=== PATIENT | female | born 1980 | race African-American/Black ===

== ENCOUNTER → 2023-10-16 12:07 | Outpatient (REF) | payer OTHER, SELFPAY | LOC: WDC 12:07 | PROVIDERS: ATTENDING PHYSICIAN Family Medicine | DX: Z12.31 Encounter for screening mammogram for malignant neoplasm of breast (principal) | CPT/HCPCS: 77063; 77067 ==

== ENCOUNTER 2024-01-02 06:13 | Day surgery (SDC) | payer OTHER, SELFPAY ==
[2023-12-08 06:56] VITALS: BMI 21.3
[2023-12-08 08:53] LABS: Hematocrit 38.5 % (37.0-47.0); Hemoglobin 12.4 g/dL (12.0-16.0); Mean Corp Hgb Conc. 32.2 g/dL (33.0-37.0); Mean Corpuscular Hgb 25.4 pg (27.0-31.0); Mean Corpuscular Volume 78.7 fL (81.0-99.0); Mean Platelet Volume 10.5 fL (7.4-10.4); Platelet Count 250 10^3/uL (130-400); Red Blood Cell Count 4.89 10^6/uL (4.20-5.40)
[2023-12-08 09:06] LABS: INR 1.03; PT 13.3 Sec (11.4-14.6)
[2023-12-08 09:17] LABS: Blood Urea Nitrogen 20 mg/dl (7-17); Calcium 10.1 mg/dl (8.4-10.2); Carbon Dioxide 26 mmol/L (22-30); Chloride 103 mmol/L (98-107); Estimated Creatinine Clearance 84 ml/min; Glucose 74 mg/dl (70-99); Potassium 4.4 mmol/L (3.5-5.1); Sodium 137 mmol/L (135-145); eGFR > 60.00
[2023-12-08 09:30] LABS: Beta HCG Quantitative < 2.39 mIU/ml
[2023-12-08 09:50] LABS: Absolute Neutrophils -Man Diff 1.1 10^3/uL (1.4-6.5); Band Neutrophils 0 % (0-3); Eosinophils 2 % (0-6); Lymphocytes 51 % (20-51); Monocytes 10 % (2-9); Segmented Neutrophils 37 % (42-75)
[2023-12-08 09:51] LABS: Normal RBC Morphology Yes; Platelets Checked Yes; Total Cells Counted 100
[2024-01-02] VITALS (17 sets, daily range): BP systolic 108–145; BP diastolic 63–86; BMI 21.3
--- NOTE | 2024-01-02 07:15 | W.SUR.PREOP ---
Pre-Operative Surgical Note
-
I have examined this patient prior to the performance of the scheduled procedure.
The patient's condition is unchanged from the time of the current History and
Physical and the patient is able to undergo the scheduled procedure.
No changes in exam or hx/plan.
[2024-01-02] MEDS: NORMOSOL-R 1000 IV ×2 (07:29→17:02)
[2024-01-02] MEDS: HEPARIN 5000 UNITS SC (07:29)
--- NOTE | 2024-01-02 10:06 | W.IMMPOSTOP ---
Surgical Immed Post Op Note
-
Primary Surgeon: Yael Gramajo DO
Replanting Machine Operator: JASE Llamas
Pre-op Diagnosis: Menorrhagia, fibroid uterus, anemia
Post-op Diagnosis: same
Procedure Performed: Robotic assisted total vaginal hysterectomy bilateral salpingectomy
Anesthesia Type: general ET Dr. Rdz
Specimen / Cultures: uterus, cervix, bilateral tubes
Estimated Blood Loss: 15ml
IVF: 1500ml
Urine output: 800ml clear yellow
Complications: none
Operative Findings: Uterus with globular shape containing fibroid. normal appearing cervix, tubes and ovaries. Benign cyst left ovary approx 1.5cm.
Counts correct times 2.
Stable to recovery.
[2024-01-02] MEDS: ZOFRAN 4 MG IV (11:02)
--- NOTE | 2024-01-02 12:06 | PTCARENOTE ---
Addendum..Patient had intermittent nausea medicated with zofran and additional IVF. Nausea continues to be intermittent, spoke with Dr Kendell lopez to move to [facility].
--- NOTE | 2024-01-02 14:39 | W.PN.UPDATE ---
Update Note
Progress Note Update
Seen in recovery and SDS after surgery. She had been hoping to go home but after surgery has been having somnolence and also Nausea that is not resolved with meds yet. She has been in recovery/SDS over 2.5 hrs and not ready to go home yet. Suggested
staying for now and I can see her later this afternoon/evening to reassess. May stay and be discharged tomorrow also. She agrees. Orders written.
[2024-01-02] MEDS: NON-FORMULARY ITEM 100 MG SC ×2 (16:58→21:25)
[2024-01-02] MEDS: NON-FORMULARY ITEM SC (16:58)
[2024-01-02] MEDS: TORADOL 15 MG IV ×2 (17:00→22:17)
--- NOTE | 2024-01-02 18:30 | W.PN.UPDATE ---
Update Note
Progress Note Update
Postop check.:
Cassia having some nausea still and unable to tolerated sips yet.
Has antiemetic ordered.
VSS afeb
abd: soft ND inc cdi
A/P:Postop check s/p RA TLH b/l salpingectomy
Nausea postop
Plan to keep overnight
Scopolamine patch ordered in addition to antiemetics
Cont postop care
anticipate dc tomorrow
labs in am
[2024-01-02] MEDS: TRANSDERM-SCOP 1 PATCH TRANSDERM (20:05)
[2024-01-02] MEDS: MYLICON 80 MG PO (21:24)
[2024-01-03] MEDS: NORMOSOL-R 1000 IV ×2 (00:29→07:53)
[2024-01-03 03:00] VITALS: BP 124/68
[2024-01-03] MEDS: TORADOL 15 MG IV ×2 (05:57→10:23)
[2024-01-03 06:35] LABS: % Basophils 0.8 % (0-2); % Eosinophils 0.2 % (0-6); % Immature Granulocytes 0.2 % (0-0.5); % Lymphocytes 29.6 % (20.5-51.1); % Monocytes 12.3 % (1.7-9.3); % Neutrophils 56.9 % (42.2-75.2); Absolute Lymphocytes 1.6 10^3/uL (1.2-3.4); Absolute Monocytes 0.7 10^3/uL (0.1-0.6); Hematocrit 33.9 % (37.0-47.0); Hemoglobin 11.4 g/dL (12.0-16.0); Mean Corp Hgb Conc. 33.6 g/dL (33.0-37.0); Mean Corpuscular Hgb 26.8 pg (27.0-31.0); Mean Corpuscular Volume 79.8 fL (81.0-99.0); Mean Platelet Volume 10.4 fL (7.4-10.4); Nucleated Red Blood Cells % 0 %; Platelet Count 208 10^3/uL (130-400); Red Blood Cell Count 4.25 10^6/uL (4.20-5.40); Red Cell Dist. Width 18.6 % (11.5-14.5); White Blood Cell Count 5.3 10^3/uL (4.8-10.8)
[2024-01-03 07:00] LABS: Blood Urea Nitrogen 10 mg/dl (7-17); Carbon Dioxide 21 mmol/L (22-30); Chloride 106 mmol/L (98-107); Estimated Creatinine Clearance 96 ml/min; Potassium 3.7 mmol/L (3.5-5.1); Sodium 135 mmol/L (135-145)
[2024-01-03] MEDS: NON-FORMULARY ITEM 100 MG SC (07:52)
[2024-01-03 07:57] VITALS: BP 129/82
--- NOTE | 2024-01-03 11:00 | CM ---
Initial assessment completed
Pharmacy verified: [facility], [address], [place]
Family Physician verified: Matthew Reyes DO, [address], [address], [place]
Patient lives with her and two children, ages 15 and 7 in a multilevel home; 3 steps to enter; 14 steps between floors; powder room on the main level; 2nd floor bathroom has stall shower
PLOF: independent with ambulation, stairs and ADLs; drives; stay at home mother of two
DME: none
SNF/Home Health utilization history: none
Transportation: will provide ride home
Plan: discharge to home today; no needs anticipated
[2024-01-03 11:28] VITALS: BP 137/84
--- NOTE | 2024-01-03 12:02 | W.DS.TRANS ---
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
-
Discharge Instructions:
Sleep Apnea Risk Low
Discharge Diagnosis/Procedures fibroids, menorrhagia, anemia, pelvic pain S/P
Robotic laparoscopic total hysterectomy and
bilateral salpingectomy
Diet Regular
Activity No strenuous activity
Bathing Restrictions OK to Shower
Instructions:
Stand-Alone Forms:
Changes to Home Medications: No
Discharge Medications:
DC Medications w/original date entered in [employer]
Lactobacillus 40-Bifidobact 3-S.thermophilus 100 billion cell capsule (Probiotic) 1 cap PO DAILY 12/31/23
Quercetin With Bromelain 1 dose PO DAILY 12/31/23
Zinc/Magnesium 1 dose PO DAILY 12/31/23
anakinra 100 mg/0.67 mL subcutaneous syringe (Kineret) 100 mg SC TID 12/31/23
omalizumab 150 mg/mL subcutaneous auto-injector (Xolair) 1 mg SC MONTHLY 12/31/23
acetaminophen 325 mg tablet (Tylenol) 650 mg (2 x 325 mg) PO Q6H PRN mild pain #1 tab 01/02/24
ibuprofen 600 mg tablet 600 mg PO Q6H PRN mild pain #1 tab 01/02/24
ibuprofen 600 mg tablet 600 mg PO Q6H PRN mild pain #30 tabs 01/02/24
oxycodone 5 mg tablet 5 mg PO Q6H PRN moderate pain #1 tab 01/02/24
oxycodone 5 mg tablet 5 mg PO Q6H PRN severe pain #14 tabs 01/02/24
Home Medication Changes
Pending Results: Yes
Additional Pending Results:
surgical pathology
Total time spent discharging patient (in min): 30
--- NOTE | 2024-01-03 12:03 | W.PN.OBG.DWH ---
Today's Communication / Plan
-
dc home
Assessment/Plan
-
POD#1 s/p RA LH b/l salpingectomy
Stable for dc home today
reviewed dc instructions.
Subjective Data
-
POD#1 Feeling much better. Alyson diet.
no bleeding
voiding without difficulty
Objective Data
-
Laboratory Results
01/03/24 06:04
01/03/24 06:04
Vital Signs
Temp Pulse Resp BP Pulse Ox
98.2 F 77 16 137/84 98
01/03/24 11:28 01/03/24 11:28 01/03/24 11:28 01/03/24 11:28 01/03/24 11:28
VSS afeb
heart: regular rate
Pulm: clear b/l
Abd: soft +bs nondistended inc cdi
ext: no calf pain
== END 2024-01-03 12:43 | disposition home or self-care (01) ==
LOC: SDS 06:13
PROVIDERS: ATTENDING PHYSICIAN Obstetrics & Gynecology; FAMILY PHYSICIAN Family Medicine; OTHER PHYSICIAN Internal Medicine Rheumatology
DX: D25.9 Leiomyoma of uterus, unspecified (principal); N72 Inflammatory disease of cervix uteri; N80.03 Adenomyosis of the uterus; N83.292 Other ovarian cyst, left side; N92.0 Excessive and frequent menstruation with regular cycle; D50.0 Iron deficiency anemia secondary to blood loss (chronic); R10.2 Pelvic and perineal pain
CPT/HCPCS: 58571; 88307; 36415; 80048; 80051; 82565; 84520; 84702; 85025; 85610; 86850; 86900; 86901

== ENCOUNTER 2024-05-16 18:34 | Emergency (ER) | payer OTHER, SELFPAY ==
[2024-05-16 18:36] VITALS: BP 152/95
--- NOTE | 2024-05-16 21:14 | ED.GENMED ---
History of Present Illness
General
Chief Complaint: Eye Problems
Source: patient
Exam Limitations: none
Time Seen by Provider: 05/16/24 21:02
Nursing documentation reviewed up to this point in time: agreed with
History of Present Illness
History of Present Illness:
Patient is a 43-year-old female with past medical history of autoimmune disease, CAPS ( Cryopyrin associated periodic syndrome) ho presents to the ER complaining of left eye pain. Patient reports previously she was seen by her spot checker
Osvaldo because of eye irritation and was initially diagnosed with angle-closure glaucoma however when she last saw Dr. Riley of ophthalmology this year things improved and he simply felt she had a meibomian gland dysfunction.
She has been fine for months however for the past 2 weeks she has had a gritty sensation in both of her eyes and then last night started with left eye pain. She reports the pain in her left eye feels like the eyeball itself. It is worse when she
bends over. She is light sensitive. Her pain was so intense she was nauseous. She now has very minimal blurriness out of her left eye. She complains of discomfort to the left side of her face into her left upper tooth .
She denies any rash fever chills. No recent nasal congestion cough URI symptoms. No neck pain
She normally does not wear contacts.
Past History
Past History
ED Past Medical History: Other (Hyperprolactinemia), Other (recurrent headaches, urticaria) and Other (infertility; successful preg and delivery)
ED Past Surgical History: Other (oral surgery)
Social History
Tobacco: Non-smoker
Alcohol: None
Drug: None
Personal:
Living: with family
Employment: Employed
Family History
Family History: Other (reviewed and non-contributory)
Review of Systems
Review of Systems
Allergies reviewed?: Yes
All Other Systems: ROS reviewed and negative except as documented in HPI and ROS
Constitutional: Reports no symptoms; Denies fever, fatigue or chills
EENT: Reports other (left eye pain )
Respiratory: Reports no symptoms
Cardiac: Reports no symptoms
ABD/GI: Reports no symptoms
: Reports no symptoms
Musculoskeletal: Reports no symptoms
Skin: Reports no symptoms
Neurological: Reports no symptoms
Psychiatric: Reports no symptoms
Phy Exam
General Physical Exam
General Presentation: no apparent distress
General age: appears stated age
General Skin: warm and dry
General Habitus: normal
General Mental: alert
General Hydration: appears well hydrated
ENT Exam
ENT Exam: other (posterior left upper molar tender to palpation and slight decay to this to )
Eye Exam
Eye Exam: PERRL, EOMI and other (Clear conjunctiva no corneal abrasion or dye uptake; eye pressure 15 in left eye and 15 in right eye )
Able to obtain acuity?: Yes
Eye Exam General: PERRL: bilateral and EOM intact: bilateral
Pupil Exam: Bilateral: round and reactive
Neurological Exam
Neurological Exam: alert and oriented x3
Musculoskeletal Exam
Musculoskeletal Exam: full ROM
Skin Exam
Skin Exam: normal color and warm/dry
Psychiatric Exam
Psychiatric Exam: normal mood/affect
Course
Orders/Labs/Results
Orders:
Orders
05/16/24 21:20
Acetaminophen [Tylenol] 650 mg PO NOW STA
05/16/24 22:00
CT Head W/o Iv Contrast Urgent
Comment:
Reason For Exam: pain in left eye and headache
Visual Acuity- Treatment ONCE
05/17/24 00:15
Ketorolac [Toradol] 30 mg IM NOW STA
Vital Signs
Initial and Last Documented VS:
Initial Vital Signs
Temp Pulse Resp BP Pulse Ox
98.1 F 82 18 152/95 99
05/16/24 18:36 05/16/24 18:36 05/16/24 18:36 05/16/24 18:36 05/16/24 18:36
Last Documented Vital Signs
Temp Pulse Resp BP Pulse Ox
98.1 F 64 20 141/84 99
05/16/24 18:36 05/17/24 00:45 05/17/24 00:45 05/16/24 22:38 05/17/24 00:45
Residential Team Leader consulted with Physician
Residential Team Leader consulted with physician?: Yes
Name of Physician Consulted: Lorena
MDM/Problems Addressed
MDM/Problems Addressed:
Patient is a 43-year-old female with autoimmune history(CAPS) presented for complaints of left eye pain/facial pain and tooth pain. Patient does have a history of irritated dry eyes and was initially diagnosed with glaucoma in the past however
found by ophthalmology Dr. Riley to have a Meibomian gland dysfunction and not glaucoma. She denies any double vision, denies any recent fever chills denies any rash neck sensitivity. Patient has normal pressures normal visual acuity no
corneal abrasion or dye uptake.
Patient nontoxic. She is tender to the posterior left upper molar there is very minimal decay of this tooth though no gum swelling or abscess. CAT scan negative. Case reviewed with , will d/c home with optho (Dr. Crooks follow up
and f/u w/ her spot checker and dentist.
Patient was offered Toradol but declines. It is possible this is related to her anti-inflammatory autoimmune problem however she is stable for discharge home. Will however send a prescription for antibiotics for her tooth to pharmacy.
*Critical Care Note
Total Time (30-74mins, 75-104mins- exclusive of procedures): Not Applicable
ED Attending Note
-
Portions of this chart may have been created with voice recognition software.� Occasional wrong word or��sound alike� substitutions may have occurred due to the inherent limitations of voice recognition software.
Discharge Plan
Departure
Patient Disposition: Home (Routine Discharge)
Date of Disposition: 05/17/24
Time of Disposition: 00:28
Patient with high blood pressure during this ER visit?: Yes
Condition: Fair
Discharge Problem:
Acute facial pain, Acute eye pain, tooth pain
Instructions: BLOOD PRESSURE
Prescriptions:
New
penicillin V potassium 500 mg tablet
500 mg PO QID Qty: 28 0RF
No Action
Kineret 100 mg/0.67 mL Syringe
100 mg SC TID
Rx Instructions:
100 mg subcutaneously TID usually, QID on day of surgery as per patient for CAPS
Probiotic 100 billion cell Capsule
1 cap PO DAILY
Xolair 150 mg/mL Auto-Injector
1 mg SC MONTHLY
Quercetin With Bromelain
1 dose PO DAILY
Zinc/Magnesium
1 dose PO DAILY
oxycodone 5 mg tablet
5 mg PO Q6H PRN (Reason: severe pain) Qty: 14 0RF
oxycodone 5 mg tablet
5 mg PO Q6H PRN (Reason: moderate pain) Qty: 1 0RF
Rx Instructions:
0.5 TAB (2.5mg) PO Q 6HR if needed for moderate pain
acetaminophen [Tylenol] 325 mg tablet
650 mg PO Q6H PRN (Reason: mild pain) Qty: 1 0RF
ibuprofen 600 mg tablet
600 mg PO Q6H PRN (Reason: mild pain) Qty: 1 0RF
ibuprofen 600 mg tablet
600 mg PO Q6H PRN (Reason: mild pain) Qty: 30 0RF
Referrals:
Darnell Riley MD [Active] -
Matthew Reyes DO [Family Provider] -
Activity Restrictions/Additional Instructions:
Follow-up with your spot checker as discussed.
Please call tomorrow to make an appointment as is possible. In addition please follow with your vice chairman and dentist.
A prescription for antibiotics was sent to your pharmacy for left upper tooth pain
take as directed. Return if any worsening of symptoms including increasing eye pain decreased vision fever chills or any further concerns
Interventions
Interventions:
*Risk Screen - Suicide Last Done: 05/16/24 19:04
*General Assessment Last Done: 05/16/24 18:36
*Neglect/Abuse Screening Last Done: 05/16/24 19:04
ED- Fall Risk Assessment Last Done: 05/16/24 19:04
*ED COVID-19 Vaccine History Last Done: 05/16/24 19:04
*Nursing Disposition Last Done: 05/17/24 00:45
Discharge Date and Time
Discharge Date/Time: 05/17/24 00:40
Print Language: MEXICAN
[2024-05-16] MEDS: TYLENOL 650 MG PO (22:12)
[2024-05-16 22:38] VITALS: BP 141/84
== END 2024-05-17 00:40 | disposition home or self-care (01) ==
LOC: EMR 18:34
PROVIDERS: EMERGENCY PHYSICIAN Emergency Medicine; FAMILY PHYSICIAN Family Medicine
DX: R51.9 Headache, unspecified (principal); H57.12 Ocular pain, left eye; K08.89 Other specified disorders of teeth and supporting structures; M35.9 Systemic involvement of connective tissue, unspecified; M04.2 Cryopyrin-associated periodic syndromes; H40.20X0 Unspecified primary angle-closure glaucoma, stage unspecified; E22.1 Hyperprolactinemia
CPT/HCPCS: 99284; 70450

== ENCOUNTER → 2024-07-06 11:00 | Outpatient (REF) | payer OTHER, SELFPAY | LOC: WDC 11:00 | PROVIDERS: ATTENDING PHYSICIAN Student in an Organized Health Care Education/Training Program; FAMILY PHYSICIAN Family Medicine | DX: N63.10 Unspecified lump in the right breast, unspecified quadrant (principal); N63.20 Unspecified lump in the left breast, unspecified quadrant; N63.13 Unspecified lump in the right breast, lower outer quadrant; N63.23 Unspecified lump in the left breast, lower outer quadrant | CPT/HCPCS: 76642; 77062; 77066 ==

== ENCOUNTER 2025-02-25 00:24 | Emergency (ER) | payer OTHER, SELFPAY ==
[2025-02-25 00:28] VITALS: BP 118/82
--- NOTE | 2025-02-25 00:54 | ED.GENMED ---
History of Present Illness
General
Chief Complaint: Headache
Time Seen by Provider: 02/25/25 00:39
History of Present Illness
History of Present Illness:
44-year-old female presents emergency room complaining of left-sided headache. Pain exist behind her left eye and in the left side of her head. Patient does get headaches from time to time. She felt like she might have a little unusual feeling in
her left arm though calming no focal weakness numbness or tingling. Patient has an autoimmune disorder, CAPS. Positive nausea no vomiting.
Past History
Past History
ED Past Medical History: Other (Hyperprolactinemia), Other (recurrent headaches, urticaria) and Other (infertility; successful preg and delivery)
ED Past Surgical History: Other (oral surgery)
Social History
Tobacco: Non-smoker
Alcohol: None
Drug: None
Personal:
Living: with family
Employment: Employed
Family History
Family History: Other (reviewed and non-contributory)
Phy Exam
Physical Exam
Physical Exam:
General: Awake, Alert, Oriented X3. No acute distress.
Vitals: unremarkable
Head: Atraumatic
Eyes: Pupils equal, EOMI
Throat: Airway intact, no exudates
Neck: Trachea midline
Lungs: Clear and equal b/l
Heart: Regular rate, no murmurs
Abd: Soft, Nontender, No pulsatile mass
Neuro: Cranial nerves intact, muscle strength equal bilaterally, cerebellar exam normal
Skin: Warm, dry, no rash
Extremities: pulses equal b/l, no edema
Course
Orders/Labs/Results
Orders:
Orders
02/25/25 00:52
CT Head W/o Iv Contrast Urgent
Comment:
Reason For Exam: headache left hand paresthesia
Diphenhydramine [Benadryl] 25 mg IV NOW STA
Ketorolac [Toradol] 15 mg IV NOW STA
Metoclopramide [Reglan] 10 mg IV NOW STA
02/25/25 01:07
Basic Metabolic Panel Urgent
Complete Blood Count/With Diff Urgent
Magnesium Urgent
02/25/25 01:59
Acetaminophen [Tylenol] 1,000 mg PO NOW STA
02/25/25 02:32
Sumatriptan Succinate [Imitrex] 6 mg SC NOW STA
Abnormal Lab Results
02/25/25
01:07
WBC 4.3 L 10^3/uL
(4.8-10.8)
MCHC 32.6 L g/dL
(33.0-37.0)
MPV 11.3 H fL
(7.4-10.4)
Neutrophils % 33.6 L %
(42.2-75.2)
Monocytes % 10.3 H %
(1.7-9.3)
02/25/25 01:07
02/25/25 01:07
Vital Signs
Initial and Last Documented VS:
Initial Vital Signs
Temp Pulse Resp BP Pulse Ox
97.8 F 74 20 118/82 99
02/25/25 00:28 02/25/25 00:28 02/25/25 00:28 02/25/25 00:28 02/25/25 00:28
Last Documented Vital Signs
Temp Pulse Resp BP Pulse Ox
97.8 F 74 20 114/78 98
02/25/25 00:28 02/25/25 00:28 02/25/25 00:28 02/25/25 05:13 02/25/25 05:13
MDM/Problems Addressed
Differential Diagnosis Includes:
Tension headache, migraine headache,
MDM/Problems Addressed:
Patient presents with left-sided headache. Head CT shows no acute abnormality. Neurologic exam is nonfocal. Patient treated with Reglan, Benadryl and Toradol initially without much improvement. Sumatriptan given which resulted in significant
improvement of her headache. Patient stable for discharge home.
*Radiology
Radiology exam reviewed: radiology read reviewed
*Pulse Oximetry
SaO2: 99
Oxygen Mode of Delivery: Room air
Patient hypoxic: no
*Critical Care Note
Total Time (30-74mins, 75-104mins- exclusive of procedures): Not Applicable
ED Attending Note
-
Portions of this chart may have been created with voice recognition software.� Occasional wrong word or��sound alike� substitutions may have occurred due to the inherent limitations of voice recognition software.
Discharge Plan
Departure
Patient Disposition: Home (Routine Discharge)
Date of Disposition: 02/25/25
Time of Disposition: 05:03
Patient with high blood pressure during this ER visit?: No
Condition: Good
Discharge Problem:
Acute headache
Instructions: Headache, Adult (DC)
Prescriptions:
No Action
Kineret 100 mg/0.67 mL Syringe
100 mg SC QID
Rx Instructions:
100 mg subcutaneously TID usually, QID on day of surgery as per patient for CAPS
Probiotic 100 billion cell Capsule
1 cap PO DAILY
colchicine 0.6 mg Tablet
0.6 mg PO DAILY
Xolair 300 mg/2 mL Syringe
300 mg SC Q4W
Referrals:
Matthew Reyes DO [Family Provider, Family Practice]
Interventions
Interventions:
*Risk Screen - Suicide Last Done: 02/25/25 00:28
*General Assessment Last Done: 02/25/25 00:28
*Neglect/Abuse Screening Last Done: 02/25/25 00:28
*ED- Fall Risk Assessment Last Done: 02/25/25 00:28
*ED COVID-19 Vaccine History Last Done: 02/25/25 00:28
*Nursing Disposition Last Done: 02/25/25 05:19
ED- Neurological Assessment Last Done: 02/25/25 03:46
Discharge Date and Time
Discharge Date/Time: 02/25/25 05:22
Print Language: BELARUSIAN
[2025-02-25] MEDS: REGLAN 10 MG IV (01:11)
[2025-02-25] MEDS: BENADRYL 25 MG IV (01:13)
[2025-02-25] MEDS: TORADOL 15 MG IV (01:15)
[2025-02-25 01:17] LABS: Hematocrit 38.9 % (37.0-47.0); Hemoglobin 12.7 g/dL (12.0-16.0); Mean Corp Hgb Conc. 32.6 g/dL (33.0-37.0); Mean Corpuscular Volume 83.8 fL (81.0-99.0); Nucleated Red Blood Cells % 0 %; Platelet Count 214 10^3/uL (130-400); Red Cell Dist. Width 13.2 % (11.5-14.5)
[2025-02-25 01:18] VITALS: BMI 20.8
[2025-02-25 01:26] LABS: Blood Urea Nitrogen 16 mg/dl (7-17); Calcium 9.4 mg/dl (8.4-10.2); Carbon Dioxide 25 mmol/L (22-30); Chloride 107 mmol/L (98-107); Estimated Creatinine Clearance 106 ml/min; Glucose 92 mg/dl (70-99); Magnesium 1.9 mg/dl (1.6-2.3); Potassium 3.5 mmol/L (3.5-5.1); Sodium 138 mmol/L (135-145); eGFR > 60.00
[2025-02-25 02:00] VITALS: BP 107/67
[2025-02-25] MEDS: TYLENOL 1000 MG PO (02:03)
[2025-02-25] MEDS: IMITREX 6 MG SC (02:40)
[2025-02-25 03:00] VITALS: BP 124/77
[2025-02-25 04:00] VITALS: BP 113/74
[2025-02-25 05:13] VITALS: BP 114/78
== END 2025-02-25 05:22 | disposition home or self-care (01) ==
LOC: EMR 00:24
PROVIDERS: EMERGENCY PHYSICIAN Emergency Medicine; FAMILY PHYSICIAN Family Medicine
DX: R51.9 Headache, unspecified (principal); E22.1 Hyperprolactinemia
CPT/HCPCS: 99284; 96374; 96375; 96372; 70450; 80048; 83735; 85025

== ENCOUNTER → 2025-03-07 16:54 | Outpatient (REF) | payer OTHER, SELFPAY | LOC: RCS 16:54 | PROVIDERS: ATTENDING PHYSICIAN Family Medicine | DX: R06.02 Shortness of breath (principal) | CPT/HCPCS: 71046 ==

== ENCOUNTER → 2025-03-08 13:10 | Outpatient (REF) | payer OTHER, SELFPAY | LOC: RCS 13:10 | PROVIDERS: ATTENDING PHYSICIAN Family Medicine | DX: R06.02 Shortness of breath (principal) | CPT/HCPCS: 93005 ==

== ENCOUNTER 2025-05-01 11:09 | Emergency (ER) | payer OTHER, SELFPAY ==
[2025-05-01 11:12] VITALS: BP 118/88
--- NOTE | 2025-05-01 13:18 | ED.SKININJ ---
HPI-Injury
General
Chief Complaint: BURN-MINOR
Source: patient
Exam Limitations: none
Time Seen by Provider: 05/01/25 12:24
Nursing documentation reviewed up to this point in time: agreed with
History of Present Illness-Injury
Initial Injury comments:
44-year-old female with history of autoimmune disease's, takes Kineret and Xolair, presents for a burn of the left hand. She states she burned it on a hot pot at home 2 hours ago.
Past History
Past History
ED Past Medical History: Other (Hyperprolactinemia, autoimmune disease CAPS), Other (recurrent headaches, urticaria) and Other (infertility; successful preg and delivery)
ED Past Surgical History: Other (oral surgery)
Social History
Tobacco: Non-smoker
Alcohol: None
Drug: None
Personal:
Living: with family
Employment: Employed
Family History
Family History: Other (reviewed and non-contributory)
Review of Systems
Review of Systems
Allergies reviewed?: Yes
All Other Systems: ROS reviewed and negative except as documented in HPI and ROS
Phy Exam
Physical Exam
Physical Exam:
PHYSICAL EXAMINATION:
General: no apparent distress, not acutely ill
Neuro: alert and oriented.
Psychiatric: well kept. interactive and cooperative
Musculoskeletal: Moves with ease
Skin: Warm, normal. Palmar aspect of left hand at the base of the thumb and webspace between thumb and index finger has mild redness and wrinkling, skin is intact. Relatively small burn
Course
Vital Signs
Initial and Last Documented VS:
Initial Vital Signs
Temp Pulse Resp BP Pulse Ox
98.2 F 74 15 118/88 100
05/01/25 11:12 05/01/25 11:12 05/01/25 11:12 05/01/25 11:12 05/01/25 11:12
Last Documented Vital Signs
Temp Pulse Resp BP Pulse Ox
98.2 F 74 15 118/88 100
05/01/25 11:12 05/01/25 11:12 05/01/25 11:12 05/01/25 11:12 05/01/25 13:21
MDM/Problems Addressed
MDM/Problems Addressed:
44-year-old female with history of autoimmune disease's, takes Kineret and Xolair, presents for a burn of the left hand. She states she burned it on a hot pot at home 2 hours ago.
This is a first-degree burn, a small area at the base of her thumb and palmar aspect of the webspace. Skin is intact.
Burn care reviewed, Band-Aid applied for protection
*Pulse Oximetry
SaO2: 100
Oxygen Mode of Delivery: Room air
Patient hypoxic: not evaluated
*Critical Care Note
Total Time (30-74mins, 75-104mins- exclusive of procedures): Not Applicable
ED Attending Note
-
Portions of this chart may have been created with voice recognition software.� Occasional wrong word or��sound alike� substitutions may have occurred due to the inherent limitations of voice recognition software.
Discharge Plan
Departure
Patient Disposition: Home (Routine Discharge)
Date of Disposition: 05/01/25
Time of Disposition: 13:18
Patient with high blood pressure during this ER visit?: No
Condition: Good
Discharge Problem:
Burn of left hand
Instructions: Skin Kumar (DC)
Prescriptions:
No Action
Kineret 100 mg/0.67 mL Syringe
100 mg SC QID
Rx Instructions:
100 mg subcutaneously TID usually, QID on day of surgery as per patient for CAPS
Probiotic 100 billion cell Capsule
1 cap PO DAILY
colchicine 0.6 mg Tablet
0.6 mg PO DAILY
Xolair 300 mg/2 mL Syringe
300 mg SC Q4W
Referrals:
Matthew Reyes DO [Family Provider, Family Practice] - As needed
Interventions
Interventions:
*Risk Screen - Suicide Last Done: 05/01/25 11:12
*General Assessment Last Done: 05/01/25 11:12
*Neglect/Abuse Screening Last Done: 05/01/25 11:12
*ED- Fall Risk Assessment Last Done: 05/01/25 13:28
*ED COVID-19 Vaccine History Last Done: 05/01/25 11:12
*ED Influenza Vaccine History Last Done: 05/01/25 11:12
*Nursing Disposition Last Done: 05/01/25 13:28
ED-Skin Assessment Last Done: 05/01/25 13:17
Discharge Date and Time
Discharge Date/Time: 05/01/25 13:31
Print Language: AZERI
== END 2025-05-01 13:31 | disposition home or self-care (01) ==
LOC: EMR 11:09
PROVIDERS: EMERGENCY PHYSICIAN Emergency Medicine; FAMILY PHYSICIAN Family Medicine
DX: T23.152A Burn of first degree of left palm, initial encounter (principal); X15.3XXA Contact with hot saucepan or skillet, initial encounter
CPT/HCPCS: 99282